=== PATIENT | female | born 1950 | race Caucasian/White ===

== ENCOUNTER → 2017-12-04 | Day surgery (SDC) | payer MEDICARE, OTHER, BC ==
[~2017-12-04] MED LIST: LIDOCAINE 1% PF 2 ML VIAL. ID; ONDANSETRON PF 4 MG/2 ML VIAL. IV; PROCHLORPERAZINE 10 MG/2 ML VIAL. IV; PROPOFOL 20 ML IV; fentaNYL PF VIAL 100 MCG/2 ML VIAL IV
[2017-12-04] MEDS: IV RINGERS,LACTATED 1000ML 1,000 ML IV ×2 (07:49)
== END | disposition home or self-care (01) ==
LOC: ENDOS 07:10
DX: K31.89 Other diseases of stomach and duodenum (principal); K44.9 Diaphragmatic hernia without obstruction or gangrene; Z98.890 Other specified postprocedural states; Z90.710 Acquired absence of both cervix and uterus; Z87.39 Personal history of other diseases of the musculoskeletal system and connective tissue; F41.9 Anxiety disorder, unspecified; F32.9 Major depressive disorder, single episode, unspecified; Z88.6 Allergy status to analgesic agent; Z88.1 Allergy status to other antibiotic agents; Z88.8 Allergy status to other drugs, medicaments and biological substances; Z91.018 Allergy to other foods
CPT/HCPCS: 43239; 88305; J2704

== ENCOUNTER → 2017-12-14 | Outpatient (CLI) | payer MEDICARE, OTHER ==
[2017-12-14 12:40] LABS: ADD MAN DIFF? NO
[2017-12-14 12:56] LABS: BASO % 1 % (0-3); EOS # 0.3 x10^3/uL (0.0-0.7); EOS % 5 % (0-3); HEMATOCRIT 40.2 % (36.0-47.0); HEMOGLOBIN 13.2 g/dL (12.0-15.5); LYMPH # 1.3 x10^3/uL (1.0-4.8); LYMPH % 28 % (24-48); MEAN CORPUSCULAR HEMOGLOBIN 28 pg (25-35); MEAN CORPUSCULAR HGB CONC 33 g/dL (31-37); MEAN CORPUSCULAR VOLUME 85 fL (79-100); MONO # 0.4 x10^3/uL (0.0-1.1); MONO % 9 % (0-9); NEUT # 2.7 x10^3uL (1.8-7.7); NEUT % 56 % (31-73); PLATELET COUNT 267 x10^3/uL (140-400); RED BLOOD COUNT 4.74 x10^6/uL (3.50-5.40); WHITE BLOOD COUNT 4.8 x10^3/uL (4.0-11.0)
[2017-12-14 13:07] LABS: INR 1.1 (0.8-1.1); PROTHROMBIN TIME PATIENT 13.5 SEC (11.7-14.0)
[2017-12-14 13:08] LABS: PARTIAL THROMBOPLASTIN TIME 35 SEC (24-38)
[2017-12-14 13:14] LABS: ALBUMIN 3.5 g/dL (3.4-5.0); ANION GAP 7 (6-14); BLOOD UREA NITROGEN 12 mg/dL (7-20); CALCIUM 9.3 mg/dL (8.5-10.1); CARBON DIOXIDE 30 mmol/L (21-32); CHLORIDE 105 mmol/L (98-107); CREATININE 0.9 mg/dL (0.6-1.0); GFR 62.3; GLUCOSE 80 mg/dL (70-99); SODIUM 142 mmol/L (136-145)
[2017-12-14 13:45] LABS: BILIRUBIN,URINE NEGATIVE (NEG); CLARITY,URINE CLEAR; COLOR,URINE YELLOW; GLUCOSE,URINE NEGATIVE (NEG); NITRITE,URINE NEGATIVE (NEG); PH,URINE 6.5; PROTEIN,URINE NEGATIVE (NEG-TRACE)
[2017-12-14 14:08] LABS: BACTERIA,URINE FEW /HPF (0-FEW); HYALINE CASTS, URINE MODERATE /HPF; RBC,URINE 0 /HPF (0-2); SQUAMOUS EPITHELIAL CELL,UR FEW /LPF; WBC,URINE 0 /HPF (0-4)
[2017-12-14 14:20] LABS: SEDIMENTATION RATE 15 (0-25)
[2017-12-14 21:14] LABS: MRSA BY PCR Negative (Negative)
== END | disposition home or self-care (01) ==
LOC: SURGPAT 11:48
DX: Z01.818 Encounter for other preprocedural examination (principal); I10 Essential (primary) hypertension; I44.4 Left anterior fascicular block; R94.31 Abnormal electrocardiogram [ECG] [EKG]
CPT/HCPCS: 36415; 71046; 80048; 81001; 82040; 85025; 85610; 85651; 85730; 87641; 93005

== ENCOUNTER → 2017-12-15 | Outpatient (CLI) | payer MEDICARE, OTHER | END | disposition home or self-care (01) | LOC: KCIC MRI 10:31 | DX: S43.402A Unspecified sprain of left shoulder joint, initial encounter (principal); M19.012 Primary osteoarthritis, left shoulder; X58.XXXA Exposure to other specified factors, initial encounter; Y93.89 Activity, other specified; Y92.89 Other specified places as the place of occurrence of the external cause; Y99.8 Other external cause status | CPT/HCPCS: 73221 ==

== ENCOUNTER → 2017-12-18 | Outpatient (CLI) | payer MEDICARE, OTHER ==
[~2017-12-18] MED LIST changes: +DEXAMETHASONE SOD PHOS 20 MG/5 ML VIAL.; +FAMOTIDINE 20 MG/2 ML VIAL; -LIDOCAINE 1% PF 2 ML VIAL. ID; +LIDOCAINE 2% PF Vial for OR 5 ML VIAL.; +MIDAZOLAM HCL/PF 2 MG/2 ML VIAL.; +ONDANSETRON PF 4 MG/2 ML VIAL.; -ONDANSETRON PF 4 MG/2 ML VIAL. IV; -PROCHLORPERAZINE 10 MG/2 ML VIAL. IV; +ROCURONIUM 50 MG/5 ML VIAL.; +fentaNYL PF VIAL 100 MCG/2 ML VIAL; -fentaNYL PF VIAL 100 MCG/2 ML VIAL IV
== END | disposition home or self-care (01) ==
LOC: ECHO 13:44
DX: I08.1 Rheumatic disorders of both mitral and tricuspid valves (principal); I10 Essential (primary) hypertension
CPT/HCPCS: 93306; J1100; J2250; J2405; J2704; J3010; S0028

== ENCOUNTER 2017-12-21 09:09 | Inpatient (IN) | payer MEDICARE, OTHER ==
[~2017-12-21 09:09] MED LIST changes: +ACETAMINOPHEN 500 MG TABLET PO; +CLINDAMYCIN 900MG PREMIX 50 ML IV; -DEXAMETHASONE SOD PHOS 20 MG/5 ML VIAL.; -FAMOTIDINE 20 MG/2 ML VIAL; +HYDROmorphone 2 MG/ML VIAL IV; +LIDOCAINE 1% PF 2 ML VIAL. ID; -LIDOCAINE 2% PF Vial for OR 5 ML VIAL.; -MIDAZOLAM HCL/PF 2 MG/2 ML VIAL.; +MORPHINE SULFATE 2 MG/ML DISP.SYRIN. IV; -ONDANSETRON PF 4 MG/2 ML VIAL.; +ONDANSETRON PF 4 MG/2 ML VIAL. IV; +PROCHLORPERAZINE 10 MG/2 ML VIAL. IV; -PROPOFOL 20 ML IV; -ROCURONIUM 50 MG/5 ML VIAL.; -fentaNYL PF VIAL 100 MCG/2 ML VIAL; +fentaNYL PF VIAL 100 MCG/2 ML VIAL IV
[2017-12-21] MEDS ORDERED: HYDROcodone/APAP 7.5/325MG 1 TAB TABLET (09:27)
[2017-12-21] MEDS ORDERED: PROCHLORPERAZINE 5 MG TABLET. PO (09:30)
[2017-12-21] MEDS ORDERED: METOCLOPRAMIDE HCL 10 MG/2 ML VIAL. IV (09:30)
[2017-12-21] MEDS ORDERED: ZOLPIDEM 5 MG TABLET. PO (09:30)
[2017-12-21] MEDS ORDERED: 0.9 % SODIUM CHLORIDE 10 ML DISP.SYRIN. IV (09:30)
[2017-12-21] MEDS ORDERED: ACETAMINOPHEN 325 MG TABLET. PO (09:30)
[2017-12-21] MEDS ORDERED: MORPHINE SULFATE 2 MG/ML DISP.SYRIN. IV (09:30)
[2017-12-21] MEDS ORDERED: DEXTROSE 50% 25 GM / 50ML DISP.SYRIN. IV (09:30)
[2017-12-21] MEDS ORDERED: oxyCODONE/APAP 7.5/325 1 TAB TABLET PO (09:30)
[2017-12-21] MEDS ORDERED: CALCIUM CARBONATE 500 MG TAB.CHEW PO (09:30)
[2017-12-21] MEDS ORDERED: traMADol 50 MG TABLET PO ×2 (09:30)
[2017-12-21] MEDS ORDERED: oxyCODONE/APAP 5/325 1 TAB TABLET PO (09:30)
[2017-12-21] MEDS ORDERED: ROPIVacaine 0.5% PF 30 ML VIAL. (09:47)
[2017-12-21] MEDS: HYDROcodone/APAP 7.5/325MG 1 TAB TABLET PO ×3 (09:55→21:22)
[2017-12-21] MEDS: IV RINGERS,LACTATED 1000ML 1,000 ML IV (09:56)
[2017-12-21] MEDS: MELOXICAM 7.5 MG TABLET PO (09:58)
[2017-12-21] MEDS ORDERED: CLINDAMYCIN PREMIX 900 MG/50 ML BAG IV (10:00)
[2017-12-21] MEDS ORDERED: ePHEDrine PF IN SALINE 50 MG/5 ML DISP.SYRIN IV (10:43)
[2017-12-21] MEDS ORDERED: VASOPRESSIN 20 UNIT/ML VIAL. (10:49)
[2017-12-21] MEDS: TRANEXAMIC ACID 1,000 MG in IV NS 50ML -- 1ST BAG INJ (10:53)
[2017-12-21] MEDS: EPINEPHRINE IV (10:56)
[2017-12-21] MEDS: [UNRECOGNIZED DRUG - OTHER] IV (10:56)
[2017-12-21] MEDS: ROPIVACAINE 0.5% IV (10:56)
[2017-12-21] MEDS: KETOROLAC IV (10:56)
[2017-12-21] MEDS ORDERED: 0.9 % SODIUM CHLORIDE 50 ML VIAL. IJ (11:03)
[2017-12-21] MEDS ORDERED: GLYCOPYRROLATE 1 MG/5 ML VIAL. (11:24)
[2017-12-21] MEDS ORDERED: MIDAZOLAM HCL/PF 2 MG/2 ML VIAL. (11:43)
[2017-12-21] MEDS ORDERED: PHENYLEPHRINE in 0.9% NACL PF 1 MG/10 ML SYRINGE. IV (11:50)
[2017-12-21] MEDS ORDERED: ALBUMIN HUMAN 5% 500 ML IV (12:06)
[2017-12-21] MEDS ORDERED: VECURONIUM BOLUS 10 MG VIAL. IV (12:21)
[2017-12-21] MEDS ORDERED: NEOSTIGMINE METHYLSULFATE 5 MG/5 ML SYRINGE. (12:43)
[2017-12-21] MEDS ORDERED: SEVOFLURANE > 120 MINUTES. IH (12:49)
[2017-12-21] MEDS: FERROUS SULFATE 325 MG TABLET. PO (16:47)
[2017-12-21] MEDS: CLINDAMYCIN 900MG PREMIX 50 ML IV ×2 (16:47→23:05)
[2017-12-21] MEDS: IV DEXTROSE 5 %-0.45 % NACL 1,000 ML IV (20:35)
[2017-12-21] MEDS: TRANEXAMIC ACID 1,000 MG in IV NS 50ML -- 2ND BAG INJ (20:35)
[2017-12-21] MEDS: TOPIRAMATE 25 MG TABLET. PO (21:21)
[2017-12-21] MEDS: CELECOXIB 200 MG CAPSULE. PO (21:21)
[2017-12-21] MEDS: PROPRANOLOL 10 MG TABLET. PO (21:23)
[2017-12-21] MEDS: PRIMIDONE 50 MG TABLET PO (21:54)
[2017-12-22] MEDS: IV DEXTROSE 5 %-0.45 % NACL 1,000 ML IV (01:00)
[2017-12-22] MEDS: CLINDAMYCIN 900MG PREMIX 50 ML IV (04:39)
[2017-12-22] MEDS ORDERED: MAGNESIUM HYDROXIDE 2,400 MG/30 ML ORAL.SUSP. PO (06:00)
[2017-12-22] MEDS: CHOLECALCIFEROL (VITAMIN D3) 1,000 UNIT TABLET PO (06:08)
[2017-12-22 06:39] LABS: HEMATOCRIT 32.1 % (36.0-47.0); HEMOGLOBIN 10.4 g/dL (12.0-15.5); MEAN CORPUSCULAR HGB CONC 33 g/dL (31-37)
[2017-12-22] MEDS: buPROPion XL 150 MG TAB.ER.24H. PO (07:46)
[2017-12-22] MEDS: HYDROcodone/APAP 7.5/325MG 1 TAB TABLET PO ×2 (07:47→16:27)
[2017-12-22] MEDS: FERROUS SULFATE 325 MG TABLET. PO ×2 (08:30→16:27)
[2017-12-22] MEDS: DULoxetine HCL 30 MG CAPSULE.DR PO (08:30)
[2017-12-22] MEDS: TOPIRAMATE 25 MG TABLET. PO ×2 (08:31→21:12)
[2017-12-22] MEDS: LOSARTAN POTASSIUM 50 MG TABLET. PO (08:31)
[2017-12-22] MEDS: PROPRANOLOL 10 MG TABLET. PO ×2 (08:31→21:12)
[2017-12-22] MEDS: SENNOSIDES/DOCUSATE 8.6/50MG TABLET. PO (08:31)
[2017-12-22] MEDS: MULTIVITAMIN with MINERAL TABLET. PO (08:31)
[2017-12-22] MEDS: CELECOXIB 200 MG CAPSULE. PO ×2 (08:31→21:12)
[2017-12-22] MEDS ORDERED: PRIMIDONE 50 MG TABLET PO (09:00)
[2017-12-22] MEDS: HYDROcodone/APAP 10/325 1 TAB TABLET PO (10:24)
[2017-12-22] MEDS ORDERED: BISACODYL 10 MG SUPP.RECT. PR (16:00)
[2017-12-22] MEDS: PRIMIDONE 50 MG TABLET PO (21:11)
[2017-12-23] MEDS: HYDROcodone/APAP 7.5/325MG 1 TAB TABLET PO ×2 (01:08→10:43)
[2017-12-23] MEDS: CHOLECALCIFEROL (VITAMIN D3) 1,000 UNIT TABLET PO (06:04)
[2017-12-23 06:18] LABS: MEAN CORPUSCULAR HGB CONC 32 g/dL (31-37)
[2017-12-23] MEDS: buPROPion XL 150 MG TAB.ER.24H. PO (07:57)
[2017-12-23] MEDS: DULoxetine HCL 30 MG CAPSULE.DR PO (07:57)
[2017-12-23] MEDS: CELECOXIB 200 MG CAPSULE. PO (07:58)
[2017-12-23] MEDS: MULTIVITAMIN with MINERAL TABLET. PO (07:58)
[2017-12-23] MEDS: SENNOSIDES/DOCUSATE 8.6/50MG TABLET. PO (07:58)
[2017-12-23] MEDS: FERROUS SULFATE 325 MG TABLET. PO (07:58)
[2017-12-23] MEDS: PROPRANOLOL 10 MG TABLET. PO (08:02)
[2017-12-23] MEDS: LOSARTAN POTASSIUM 50 MG TABLET. PO (08:03)
[2017-12-23] MEDS: TOPIRAMATE 25 MG TABLET. PO (08:03)
== END 2017-12-23 10:45 | disposition home or self-care (01) | DRG 483 ==
LOC: OPSVCIP 09:09 → 4 SOUTHEST 15:00
PROC: 0RRK0JZ Replacement of Left Shoulder Joint with Synthetic Substitute, Open Approach (ICD-10-PCS; principal; 2017-12-21 10:27)
DX: M19.019 Primary osteoarthritis, unspecified shoulder (principal); Z88.6 Allergy status to analgesic agent; Z88.8 Allergy status to other drugs, medicaments and biological substances; Z91.018 Allergy to other foods
CPT/HCPCS: 36415; 73030; 85014; 85018; 86850; 86900; 86901; 88304; 88311; 93306; 97110-GP; 97116-GP; 97162-GP; 97165-GO; 97530-GP; 97535-GO; A4215; C1713; J0171; J1100; J1885; J2250; J2370; J2405; J2704; J2710; J2795; J3010; J3490; J7030; J7120; P9045; S0028

== ENCOUNTER 2018-08-25 12:19 | Emergency (ER) | payer MEDICARE, OTHER ==
[~2018-08-25] VITALS: Ht 165.1 cm; Wt 108.9 kg
[~2018-08-25 12:19] MED LIST changes: -ACETAMINOPHEN 500 MG TABLET PO; +BUPR300T3 PO; +BUPR75TA5 PO; +CHOL10003 PO; -CLINDAMYCIN 900MG PREMIX 50 ML IV; +CYAN25008 PO; +DULO60CA6 PO; +HYDR-2762 PO; -HYDROmorphone 2 MG/ML VIAL IV; -LIDOCAINE 1% PF 2 ML VIAL. ID; -MORPHINE SULFATE 2 MG/ML DISP.SYRIN. IV; +MULT-245 PO; -ONDANSETRON PF 4 MG/2 ML VIAL. IV; +PRIM50TA PO; -PROCHLORPERAZINE 10 MG/2 ML VIAL. IV; +PROP10TA PO; +TOPI25TA7 PO; +VALS160T27 PO; +VALS1TAB8 PO; +VENL150C PO; +VENL37.5 PO; +VENL75CA PO; -fentaNYL PF VIAL 100 MCG/2 ML VIAL IV; +naproxen PO
[2018-08-25] MEDS ORDERED: DIPHTH,PERTUSS(ACELL),TET TOX 0.5 ML DISP.SYRIN. VAX IM ONE (12:45)
[2018-08-25] MEDS ORDERED: NEOMY/BACITR/POLYMYXIN OINT PACKET. TP ONE (12:45)
[2018-08-25] MEDS ORDERED: HYDROcodone/APAP 5/325MG 1 TAB TABLET PO ONE (12:45)
[2018-08-25 12:57] VITALS: BP 150/74
--- NOTE | 2018-08-25 12:57 | PHYS DOC ---
Adult General Chief Complaint Chief Complaint: MECHANICAL FALL HPI HPI Patient is a 67 year old female who presents to the ED today to be evaluated status post falling. Patient states she was walking in her friend's garage when she tripped and fell. Patient denies any loss of consciousness. She is complaining of right forehead contusion, bilateral hand pain and left elbow pain. Rates her pain as 8 out of 10. Review of Systems Review of Systems Constitutional: Denies fever or chills [] Eyes: Denies change in visual acuity, redness, or eye pain [] HENT: Denies nasal congestion or sore throat [] Respiratory: Denies cough or shortness of breath [] Cardiovascular: No additional information not addressed in HPI [] GI: Denies abdominal pain, nausea, vomiting, bloody stools or diarrhea [] : Denies dysuria or hematuria [] Musculoskeletal: Reports left elbow pain, bilateral hand pain. Denies back pain Integument: Denies rash or skin lesions [] Neurologic: Reports forehead contusion. Denies headache, focal weakness or sensory changes [] All other systems were reviewed and found to be within normal limits, except as documented in this note. Current Medications Current Medications Current Medications Medications (Trade) Dose Ordered Sig/Raghav Start Time Stop Time Status Last Admin Dose Admin Acetaminophen/ Hydrocodone Bitart (Lortab 5/325) 1 tab 1X ONCE 08/25/18 12:45 08/25/18 12:46 DC 08/25/18 12:45 1 TAB Diphtheria/ Tetanus/Acell Pertussis (Boostrix) 0.5 ml ONCE ONCE 08/25/18 12:45 08/25/18 12:46 DC 08/25/18 12:45 0.5 ML Neomycin/ Polymyxin/ Bacitracin (Triple Antibiotic Ointment) 1 pkt 1X ONCE 08/25/18 12:45 08/25/18 12:46 DC 08/25/18 12:45 1 PKT Allergies Allergies Allergies Coded Allergies Type Severity Reaction Last Updated Verified eucalyptus Allergy Severe Shortness of Air 12/21/17 Yes aloe vera Allergy Intermediate Rash 12/21/17 Yes ampicillin Allergy Intermediate Rash 12/21/17 Yes codeine Allergy Intermediate Rash 12/21/17 Yes Uncoded Allergies Type Severity Reaction Last Updated Verified oro peppers Adverse Reaction Intermediate Nausea and Vomiting 2/19/18 Physical Exam Physical Exam Constitutional: Well developed, well nourished, no acute distress, non-toxic appearance. [] HENT: Normocephalic, atraumatic, bilateral external ears normal, oropharynx moist, no oral exudates, nose normal. [] Eyes: PERRLA, EOMI, conjunctiva normal, no discharge. [] Neck: Normal range of motion, no tenderness, supple, no stridor. [] Cardiovascular:Heart rate regular rhythm, no murmur [] Lungs & Thorax: Bilateral breath sounds clear to auscultation [] Abdomen: Bowel sounds normal, soft, no tenderness, no masses, no pulsatile masses. [] Skin: Warm, dry, bruising noted on the upper lip as well as forehead. Back: No tenderness, no CVA tenderness. [] Extremities: No tenderness, no cyanosis, no clubbing, ROM intact, no edema. [] Neurologic: Mild sized contusion on the right forehead. Alert and oriented X 3, normal motor function, normal sensory function, no focal deficits noted. Cranial nerves II through XII intact Psychologic: Affect normal, judgement normal, mood normal. [] Current Patient Data Vital Signs Vital Signs Date Time Temp Pulse Resp B/P (MAP) Pulse Ox O2 Delivery O2 Flow Rate FiO2 08/25/18 12:57 98.0 60 150/74 (99) 98 Room Air 98.0 08/25/18 12:45 20 EKG EKG [] Radiology/Procedures Radiology/Procedures []PROCEDURE: CT HEAD AND MAXILLOFACIAL WO CT HEAD AND MAXILLOFACIAL WO Indication: fall pain no prev
Exposure: One or more of the following individualized dose reduction techniques were utilized for this examination: 1. Automated exposure control 2. Adjustment of the mA and/or kV according to patient size 3. Use of iterative reconstruction technique. Comparison: None are available. Contrast: None Head: Posterior fossa is unremarkable. No evidence of acute intracranial hemorrhage or abnormal extra-axial fluid collection. No evidence of mass effect or midline shift. Low-density in the white matter bilaterally, a nonspecific finding, but which is commonly due to chronic small vessel ischemic disease in a patient of this age. Prominence of ventricles and sulci, compatible with involutional change or atrophy. Intracranial arterial calcifications are identified. Visualized orbits are unremarkable. Visualized paranasal sinuses and mastoids are clear. Fracture of the nasal bone will be further discussed on the report below. No evidence of a depressed skull fracture. Swelling/hematoma in the right frontal scalp. Small bone density at the anterior right middle cranial fossa, may represent a small osteoma, does not appear aggressive or acute. Impression: 1. Right frontal scalp hematoma. 2. Chronic intracranial findings without evidence of acute intracranial hemorrhage or mass effect. FACIAL BONES: Nasal bone: Mildly displaced fracture of the nasal bone. The base of the right nasal bone is displaced centrally. Orbital floors: Intact Bones: No evidence of additional acute fracture or bone destruction. Visualized sinuses: Clear. Globes/Orbits: Unremarkable. Mandible/Maxilla: Degenerative changes at the left TMJ. Soft tissue: Right frontal scalp hematoma again demonstrated. Degenerative changes at the partially seen upper cervical spine. IMPRESSION: Mildly displaced nasal bone fracture. Electronically signed by: Anjel Mcneil MD (08/25/2018 2:02 PM) [facility] DICTATED and SIGNED BY: ANJEL MCNEIL MD DATE: 08/25/18 0224 PROCEDURE: ELBOW LEFT 3V Left elbow, 3 views, 08/25/2018: HISTORY: Fall, elbow pain No fracture or dislocation is identified. There is minimal spurring along the margin of the radial head. No significant joint effusion is seen. There is mild subcutaneous edema posteriorly. IMPRESSION: No acute bony abnormality is detected. Bilateral hands, 6 views, 08/25/2018: HISTORY: Fall, pain No acute fracture or dislocation is identified. There are moderate to severe degenerative changes at the first CMC joints bilaterally with periarticular calcifications. Old nonunited fracture fragments or accessory ossicles are evident at the ulnar styloid levels. IMPRESSION: No acute bony abnormality is detected. Electronically signed by: Viet Ballard MD (08/25/2018 2:00 PM) [facility] DICTATED and SIGNED BY: VIET BALLARD MD DATE: 08/25/18 0599 Course & Med Decision Making Course & Med Decision Making Pertinent Labs and Imaging studies reviewed. (See chart for details) This is a 67-year-old female patient presenting to the ED today to be evaluated status post falling. Patient is complaining of forehead contusion, bilateral hand pain and left elbow pain. Tetanus was updated on arrival. Bilateral hand x- rays, left elbow x-rays interpreted by radiologist were negative for any acute findings. CT of the head was negative for any acute findings. CT of maxillofacial was noted for mildly displaced nasal bone fracture. Case discussed with Dr. Momin, patient was discharged with Augmentin and f/u with ENT in the course of this week or next week. [place] Disclaimer Dragon Disclaimer This electronic medical record was generated, in whole or in part, using a voice recognition dictation system. Departure Departure Impression: Primary Impression: Fall from standing Additional Impressions: Nasal bone fracture Forehead contusion Closed head injury Disposition: HOME, SELF-CARE Condition: STABLE Referrals: TENA THORNE APRN (PCP) Follow-up next week VINOD MARIE MD follow up next week or this week Patient Instructions: Contusion, [id number], Fall Prevention and Home Safety , Nasal Fracture Additional Instructions: You were evaluated in the emergency room after falling. Your CT of the face was noted for nasal bone fracture. Ice elevate the affected areas. Follow-up with the provided ENT in the course of this week or next week. Come back to the ED at any point symptoms worsen. Scripts Amoxicillin/Potassium Clav (AUGMENTIN 875-125 TABLET) 1 Each Tablet 1 TAB PO BID, #20 TAB Prov: EM CASTRO APRN 08/25/18 Hydrocodone/Apap 5-325 (NORCO 5-325 TABLET) 1 Each Tablet 1 TAB PO Q6HRS, #12 TAB Prov: EM CASTRO APRN 08/25/18 Problem Qualifiers Primary Impression: Fall from standing Encounter type: initial encounter Qualified Codes: W19.XXXA - Unspecified fall, initial encounter Additional Impressions: Nasal bone fracture Encounter type: initial encounter Fracture type: closed Qualified Codes: S02.2XXA - Fracture of nasal bones, initial encounter for closed fracture Forehead contusion Encounter type: initial encounter Qualified Codes: S00.83XA - Contusion of other part of head, initial encounter Closed head injury Encounter type: initial encounter Qualified Codes: S09.90XA - Unspecified injury of head, initial encounter EM CASTRO APRN Aug 25, 2018 12:56
--- NOTE | 2018-08-25 14:03 | RAD ---
Left elbow, 3 views, 08/25/2018: HISTORY: Fall, elbow pain No fracture or dislocation is identified. There is minimal spurring along the margin of the radial head. No significant joint effusion is seen. There is mild subcutaneous edema posteriorly. IMPRESSION: No acute bony abnormality is detected. Bilateral hands, 6 views, 08/25/2018: HISTORY: Fall, pain No acute fracture or dislocation is identified. There are moderate to severe degenerative changes at the first CMC joints bilaterally with periarticular calcifications. Old nonunited fracture fragments or accessory ossicles are evident at the ulnar styloid levels. IMPRESSION: No acute bony abnormality is detected. Electronically signed by: Viet Ballard MD (08/25/2018 2:00 PM) [facility] [place]
--- NOTE | 2018-08-25 14:05 | RAD ---
CT HEAD AND MAXILLOFACIAL WO Indication: fall pain no prev
Exposure: One or more of the following individualized dose reduction techniques were utilized for this examination: 1. Automated exposure control 2. Adjustment of the mA and/or kV according to patient size 3. Use of iterative reconstruction technique. Comparison: None are available. Contrast: None Head: Posterior fossa is unremarkable. No evidence of acute intracranial hemorrhage or abnormal extra-axial fluid collection. No evidence of mass effect or midline shift. Low-density in the white matter bilaterally, a nonspecific finding, but which is commonly due to chronic small vessel ischemic disease in a patient of this age. Prominence of ventricles and sulci, compatible with involutional change or atrophy. Intracranial arterial calcifications are identified. Visualized orbits are unremarkable. Visualized paranasal sinuses and mastoids are clear. Fracture of the nasal bone will be further discussed on the report below. No evidence of a depressed skull fracture. Swelling/hematoma in the right frontal scalp. Small bone density at the anterior right middle cranial fossa, may represent a small osteoma, does not appear aggressive or acute. Impression: 1. Right frontal scalp hematoma. 2. Chronic intracranial findings without evidence of acute intracranial hemorrhage or mass effect. FACIAL BONES: Nasal bone: Mildly displaced fracture of the nasal bone. The base of the right nasal bone is displaced centrally. Orbital floors: Intact Bones: No evidence of additional acute fracture or bone destruction. Visualized sinuses: Clear. Globes/Orbits: Unremarkable. Mandible/Maxilla: Degenerative changes at the left TMJ. Soft tissue: Right frontal scalp hematoma again demonstrated. Degenerative changes at the partially seen upper cervical spine. IMPRESSION: Mildly displaced nasal bone fracture. Electronically signed by: Anjel Mcneil MD (08/25/2018 2:02 PM) [facility]
[2018-08-25] MEDS ORDERED: AMOX1TAB61 PO (14:45)
[2018-08-25] MEDS ORDERED: HYDR-971 PO (14:45)
== END 2018-08-25 14:59 | disposition home or self-care (01) ==
LOC: ER 12:19
DX: S02.2XXA Fracture of nasal bones, initial encounter for closed fracture (principal); M79.642 Pain in left hand; M79.641 Pain in right hand; Z88.1 Allergy status to other antibiotic agents; Z88.5 Allergy status to narcotic agent; Z88.8 Allergy status to other drugs, medicaments and biological substances; W01.0XXA Fall on same level from slipping, tripping and stumbling without subsequent striking against object, initial encounter; Y93.01 Activity, walking, marching and hiking; Y92.89 Other specified places as the place of occurrence of the external cause; Y99.8 Other external cause status
CPT/HCPCS: 70450; 70486; 73080; 73130; 90471; 90715; 99284-25

== ENCOUNTER → 2018-12-02 | Outpatient (CLI) | payer MEDICARE, OTHER ==
[~2018-12-02] MED LIST changes: +AMOX1TAB61 PO; +GADOBUTROL 7.5 MMOL/7.5 ML VIAL IV ONE; -HYDR-2762 PO; +HYDR-2765 PO; +HYDR-3164 PO
--- NOTE | 2018-12-02 12:31 | KCIC ---
EXAMINATION: Magnetic resonance imaging (MRI) of the brain and brainstem without and with contrast 12/02/2018 11:00 AM HISTORY: Ptosis of eyelids. Lino's palsy. Right-sided facial drooping. TECHNIQUE: Multiplanar multi-weighted MRI of the brain and brainstem was performed without and with intravenous contrast using the general brain protocol. Contrast information: 11 mL Gadolinium based contrast COMPARISON: CT head August 25, 2018 FINDINGS: The scalp and calvarium are normal. The superior sagittal sinus demonstrates normal venous flow. The corpus callosum is normal in shape and signal intensity. The posterior fossa is unremarkable. The pituitary and sella are normal. The brainstem and craniocervical junction are unremarkable.. Dense dural based calcification is identified along the falx. Diffusion weighted images reveal no hyperintensities to suggest acute cerebral infarction. The susceptibility weighted sequences reveal no evidence of acute or chronic hemorrhage. The ventricles are normal in size and position without evidence of hydrocephalus. There are no areas of abnormal contrast enhancement. The paranasal sinuses are normal. The visualized portions of the mastoids are unremarkable. The orbits appear normal. Normal flow voids are demonstrated in the carotid arteries and basilar artery. IMPRESSION: No suspicious abnormality is identified involving the brainstem and skull base. No acute or subacute ischemia is identified. Electronically signed by: Kavita Rizzo MD (12/02/2018 12:26 PM) [facility]
== END | disposition home or self-care (01) ==
LOC: KCIC MRI 10:03
PROVIDERS: ATTEND Registered Nurse General Practice
DX: H02.402 Unspecified ptosis of left eyelid (principal); G51.0 Bell's palsy
CPT/HCPCS: 70553; A9585